=== PATIENT | male | born 2005 | race Hispanic/Latino ===

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

== ENCOUNTER 2024-06-15 14:36 | Emergency (ER) | payer OTHER, SELFPAY | END 2024-06-15 16:07 | LOC: NAV ERS 14:36 | DX: M25.511 Pain in right shoulder (principal) | CPT/HCPCS: 36415; 99283 ==